=== PATIENT | female | born 1965 | race Caucasian/White ===

== ENCOUNTER 2020-04-05 16:03 | Outpatient (REF) | payer OTHER, SELFPAY ==
[2020-04-05 16:43] LABS: COMMENT (LAB VIEW ONLY) 18.07 mg/dL
[2020-04-05 17:18] LABS: ALT 26 U/L (14-59); AST 18 U/L (15-37); Albumin 4.4 g/dL (3.4-5.0); Alkaline Phosphatase 76 U/L (46-116); Anion Gap 10.5 mmol/L (3-11); BUN 15 mg/dL (7-18); Bilirubin, Total 0.7 mg/dL (0.2-1.0); CO2 27.5 mmol/L (21.0-32.0); CREATININE 0.7 mg/dL (0.55-1.02); Calcium 9.7 mg/dL (8.5-10.1); Calculated LDL 102 mg/dL (<100); Chloride 103 mmol/L (98-107); Cholesterol 190 mg/dL (<200); Ferritin 6 ng/mL (8-252); Glucose 132 mg/dL (74-106); HDL Cholesterol 51 mg/dL (40-60); Sodium 141 mmol/L (136-145); TSH (W/Ref FT4) 1.73 uIU/mL (0.36-3.74); Total Protein 7.4 g/dL (6.4-8.2); Triglyceride 185 mg/dL (<150)
[2020-04-05 17:29] LABS: Abs Immature Grans 0.11 10^3/uL (0.0-0.06); Absolute Basophil Count 0.16 10^3/uL (0.0-0.2); Absolute Eosinophil Count 0.34 10^3/uL (0.0-0.7); Absolute Lymphocyte Count 2.74 10^3/uL (1.2-3.4); Absolute Monocyte Count 0.74 10^3/uL (0.1-0.8); Basophils % 1.6; Eosinophils % 3.3; HGB 15.6 g/dL (11.2-15.7); Immature Grans % 1.1; Lymphocytes % 26.9; MCH 19.6 pg (27.0-33.0); MCHC 29.4 % (32.0-36.0); MCV 66.7 fL (80-95); MPV 9.9 fL (8.0-11.0); Monocytes % 7.3; Neutrophils % 59.8; Nucleated RBC 0 %; RBC 7.95 10^6/uL (3.93-5.22); RDW 20.8 % (11.7-14.6); WBC 10.19 10^3/uL (4.4-10.8)
[2020-04-05 17:31] LABS: Diff Comment RBC Morph Reviewed
[2020-04-05 17:32] LABS: Anisocytosis 1+; Hypochromasia 1+; Microcytosis 3+; Platelet Count 738 10^3/uL (130-400); Polychromasia Present
[2020-04-05 18:37] LABS: Iron 24 ug/dL (50-170); Total Iron Binding Capacity 442 ug/dL (250-450); Transferrin Sat 5 % (15-50)
[2020-04-08 06:26] LABS: Vitamin D 25 Total 37.6 ng/ml (30-100)
== END 2020-04-05 16:04 | disposition home or self-care (01) ==
LOC: NCHCN 16:03
PROVIDERS: Visit Provider Physician Assistant
DX: E55.9 Vitamin D deficiency, unspecified (principal); E78.5 Hyperlipidemia, unspecified; E11.65 Type 2 diabetes mellitus with hyperglycemia; I10 Essential (primary) hypertension; E61.1 Iron deficiency; D75.1 Secondary polycythemia; D47.3 Essential (hemorrhagic) thrombocythemia
CPT/HCPCS: 80053; 80061; 82306; 82043; 82570; 82728; 83540; 83550; 84443; 85025

== ENCOUNTER 2020-06-07 04:28 | Outpatient (RCR) | payer OTHER, SELFPAY ==
[2020-05-16 09:28] LABS: Abs Immature Grans 0.07 10^3/uL (0.0-0.06); Absolute Basophil Count 0.15 10^3/uL (0.0-0.2); Absolute Eosinophil Count 0.45 10^3/uL (0.0-0.7); Absolute Monocyte Count 0.61 10^3/uL (0.1-0.8); Absolute Neutrophil Count 6.48 10^3/uL (1.2-6.7); Basophils % 1.5; Eosinophils % 4.4; HGB 15.1 g/dL (11.2-15.7); Immature Grans % 0.7; Lymphocytes % 24.4; MCH 19.5 pg (27.0-33.0); MCV 67.1 fL (80-95); MPV 9.2 fL (8.0-11.0); Monocytes % 5.9; Neutrophils % 63.1; Nucleated RBC 0 %; RBC 7.75 10^6/uL (3.93-5.22); RDW 20.6 % (11.7-14.6); RDW-SD 43.7 fL; WBC 10.26 10^3/uL (4.4-10.8)
[2020-05-16 09:49] LABS: Anisocytosis 2+; Diff Comment RBC Morph Reviewed; Hypochromasia 3+; Microcytosis 3+; Ovalocytes 2+; Platelet Count 733 10^3/uL (130-400); Polychromasia Present
[2020-05-16 09:50] LABS: Poikilocytes 2+
[2020-05-24] MEDS: Normal Saline Flush 10 ML SYR IVP (07:13)
[2020-05-24 07:28] LABS: Abs Immature Grans 0.09 10^3/uL (0.0-0.06); Absolute Basophil Count 0.13 10^3/uL (0.0-0.2); Absolute Eosinophil Count 0.47 10^3/uL (0.0-0.7); Absolute Lymphocyte Count 2.78 10^3/uL (1.2-3.4); Absolute Monocyte Count 0.63 10^3/uL (0.1-0.8); Absolute Neutrophil Count 6.09 10^3/uL (1.2-6.7); Basophils % 1.3; Eosinophils % 4.6; HCT 50.5 % (36.0-46.0); HGB 14.9 g/dL (11.2-15.7); Immature Grans % 0.9; Lymphocytes % 27.3; MCH 19.9 pg (27.0-33.0); MCHC 29.5 % (32.0-36.0); MCV 67.6 fL (80-95); MPV 9.6 fL (8.0-11.0); Monocytes % 6.2; Neutrophils % 59.7; Nucleated RBC 0 %; RBC 7.47 10^6/uL (3.93-5.22); RDW 20.1 % (11.7-14.6); RDW-SD 43.2 fL; WBC 10.19 10^3/uL (4.4-10.8)
[2020-05-24 07:56] LABS: Anisocytosis 1+; Diff Comment Diff Reviewed; Microcytosis 1+
[2020-05-24 08:06] LABS: Platelet Count 751 10^3/uL (130-400)
[2020-05-31] MEDS: Normal Saline Flush 10 ML SYR IVP (07:19)
[2020-05-31 07:23] LABS: Abs Immature Grans 0.07 10^3/uL (0.0-0.06); Absolute Basophil Count 0.14 10^3/uL (0.0-0.2); Absolute Eosinophil Count 0.44 10^3/uL (0.0-0.7); Absolute Lymphocyte Count 3.03 10^3/uL (1.2-3.4); Absolute Monocyte Count 0.83 10^3/uL (0.1-0.8); Absolute Neutrophil Count 7.34 10^3/uL (1.2-6.7); Basophils % 1.2; Eosinophils % 3.7; HCT 45.1 % (36.0-46.0); HGB 13.1 g/dL (11.2-15.7); Immature Grans % 0.6; Lymphocytes % 25.6; MCH 19.6 pg (27.0-33.0); MCV 67.3 fL (80-95); MPV 9.9 fL (8.0-11.0); Neutrophils % 61.9; Nucleated RBC 0 %; RDW 19.6 % (11.7-14.6); RDW-SD 42.8 fL; WBC 11.85 10^3/uL (4.4-10.8)
[2020-05-31 08:14] LABS: Anisocytosis 1+; Diff Comment Diff Reviewed; Hypochromasia 1+; Microcytosis 2+; Platelet Count 858 10^3/uL (130-400)
[2020-05-31 08:15] LABS: Poikilocytes 1+
[2020-06-07 07:08] LABS: Abs Immature Grans 0.07 10^3/uL (0.0-0.06); Absolute Lymphocyte Count 2.28 10^3/uL (1.2-3.4); Basophils % 1.1; Eosinophils % 3.9; HCT 41.5 % (36.0-46.0); HGB 11.9 g/dL (11.2-15.7); Immature Grans % 0.6; MCH 19.3 pg (27.0-33.0); MCHC 28.7 % (32.0-36.0); MCV 67.3 fL (80-95); MPV 9.7 fL (8.0-11.0); Neutrophils % 68.4; Nucleated RBC 0 %; RBC 6.17 10^6/uL (3.93-5.22); RDW 18.9 % (11.7-14.6); RDW-SD 42.7 fL; WBC 11.41 10^3/uL (4.4-10.8)
[2020-06-07 07:24] LABS: Absolute Basophil Count 0.13 10^3/uL (0.0-0.2); Absolute Eosinophil Count 0.44 10^3/uL (0.0-0.7); Absolute Monocyte Count 0.68 10^3/uL (0.1-0.8)
[2020-06-07] MEDS: Normal Saline Flush 10 ML SYR IVP (08:08)
[2020-06-07 08:21] LABS: Anisocytosis 1+; Diff Comment Diff Reviewed; Hypochromasia 1+; Microcytosis 3+; Platelet Count 860 10^3/uL (130-400)
[2020-06-07 08:22] LABS: Poikilocytes 1+
== END 2020-06-14 23:59 | disposition home or self-care (01) ==
LOC: INF 04:28
PROVIDERS: PCP Physician Assistant; Visit Provider Internal Medicine Hematology & Oncology
DX: D45 Polycythemia vera (principal)
CPT/HCPCS: 36415; 99195; 85025

== ENCOUNTER 2020-07-11 13:57 | Outpatient (RCR) | payer OTHER, SELFPAY ==
[2020-07-11 12:24] LABS: Abs Immature Grans 0.06 10^3/uL (0.0-0.06); Absolute Basophil Count 0.14 10^3/uL (0.0-0.2); Absolute Lymphocyte Count 3.08 10^3/uL (1.2-3.4); Absolute Monocyte Count 0.75 10^3/uL (0.1-0.8); Absolute Neutrophil Count 6.95 10^3/uL (1.2-6.7); Basophils % 1.2; Eosinophils % 4.9; HCT 41.7 % (36.0-46.0); Immature Grans % 0.5; Lymphocytes % 26.7; MCH 18.6 pg (27.0-33.0); MCHC 28.8 % (32.0-36.0); MCV 64.6 fL (80-95); MPV 9.7 fL (8.0-11.0); Monocytes % 6.5; Neutrophils % 60.2; Nucleated RBC 0 %; RBC 6.46 10^6/uL (3.93-5.22); RDW 18.8 % (11.7-14.6); RDW-SD 39.2 fL; WBC 11.54 10^3/uL (4.4-10.8)
[2020-07-11 12:43] LABS: Absolute Eosinophil Count 0.57 10^3/uL (0.0-0.7)
[2020-07-11 12:50] LABS: Diff Comment Diff Reviewed; Microcytosis 3+; Platelet Count 783 10^3/uL (130-400); Polychromasia Present
[2020-07-11 12:51] LABS: Poikilocytes 1+
== END 2020-07-15 23:59 | disposition home or self-care (01) ==
LOC: INF 13:57
PROVIDERS: PCP Physician Assistant; Visit Provider Internal Medicine Hematology & Oncology
DX: D45 Polycythemia vera (principal)
CPT/HCPCS: 36415; 85025

== ENCOUNTER 2020-08-09 09:00 | Outpatient (RCR) | payer OTHER, SELFPAY ==
[2020-08-09 07:59] LABS: Absolute Basophil Count 0.16 10^3/uL (0.0-0.2); Absolute Eosinophil Count 0.44 10^3/uL (0.0-0.7); Absolute Lymphocyte Count 2.66 10^3/uL (1.2-3.4); Absolute Monocyte Count 0.74 10^3/uL (0.1-0.8); Basophils % 1.5; Eosinophils % 4.2; HCT 45.9 % (36.0-46.0); HGB 12.9 g/dL (11.2-15.7); Immature Grans % 0.9; Lymphocytes % 25.1; MCH 17.8 pg (27.0-33.0); MCHC 28.1 % (32.0-36.0); MCV 63.4 fL (80-95); MPV 10.1 fL (8.0-11.0); Neutrophils % 61.3; Nucleated RBC 0 %; RBC 7.24 10^6/uL (3.93-5.22); RDW 19.6 % (11.7-14.6); RDW-SD 38.5 fL
[2020-08-09 08:35] LABS: Microcytosis 2+
[2020-08-09 10:44] LABS: Platelet Count 887 10^3/uL (130-400)
== END 2020-08-14 23:59 | disposition home or self-care (01) ==
LOC: INF 09:00
PROVIDERS: PCP Physician Assistant; Visit Provider Internal Medicine Hematology & Oncology
DX: D45 Polycythemia vera (principal)
CPT/HCPCS: 36415; 99195; 85025

== ENCOUNTER 2020-08-27 04:14 | Outpatient (CLI) | payer OTHER, SELFPAY ==
[2020-08-27] MEDS: Albuterol HFA 18 GM 200 PUFF INH IH (09:36)
[2020-08-27] MEDS: Inhaler, Assist Device 1 EACH MC (09:36)
--- NOTE | 2020-08-27 21:28 | W.PFT ---
Date of service: 08/27/20 Time of Service: 08:31 Pulmonary Function Test Result Interpretation Spirometry: No evidence of obstructive airways disease, no bronchodilator response Lung Volumes: Mild restriction Diffusion Capacity: Mildly reduced which is normal when corrected to alveolar volume Airway Pressure: Normal Impression Mild restrictive pattern, associated with mild diffusion defect Clinical Correlation therefore is recommended.
== END 2020-08-27 04:15 | disposition home or self-care (01) ==
LOC: RT 04:14
PROVIDERS: PCP Physician Assistant; Visit Provider Physician Assistant
DX: R06.02 Shortness of breath (principal)
CPT/HCPCS: 94060; 94726; 94729

== ENCOUNTER 2020-09-06 05:48 | Outpatient (RCR) | payer OTHER, SELFPAY ==
[2020-09-06 08:52] LABS: Abs Immature Grans 0.07 10^3/uL (0.0-0.06); Absolute Basophil Count 0.12 10^3/uL (0.0-0.2); Absolute Eosinophil Count 0.33 10^3/uL (0.0-0.7); Absolute Lymphocyte Count 2.57 10^3/uL (1.2-3.4); Absolute Monocyte Count 0.61 10^3/uL (0.1-0.8); Absolute Neutrophil Count 6.91 10^3/uL (1.2-6.7); Basophils % 1.1; Eosinophils % 3.1; HCT 42.5 % (36.0-46.0); HGB 11.7 g/dL (11.2-15.7); Immature Grans % 0.7; Lymphocytes % 24.2; MCH 17.2 pg (27.0-33.0); MCHC 27.5 % (32.0-36.0); MCV 62.6 fL (80-95); MPV 9.9 fL (8.0-11.0); Monocytes % 5.7; Neutrophils % 65.2; Nucleated RBC 0 %; RBC 6.79 10^6/uL (3.93-5.22); RDW 19.8 % (11.7-14.6); RDW-SD 39.6 fL; WBC 10.61 10^3/uL (4.4-10.8)
[2020-09-06 09:00] LABS: Platelet Count 951 10^3/uL (130-400)
[2020-09-06 09:22] LABS: Anisocytosis 1+; Diff Comment Diff Reviewed; Hypochromasia 1+; Microcytosis 2+; Poikilocytes 1+
== END 2020-09-14 23:59 | disposition home or self-care (01) ==
LOC: INF 05:48
PROVIDERS: PCP Physician Assistant; Visit Provider Internal Medicine Hematology & Oncology
DX: D45 Polycythemia vera (principal)
CPT/HCPCS: 36415; 85025

== ENCOUNTER 2020-10-11 03:48 | Outpatient (RCR) | payer OTHER, SELFPAY ==
[2020-10-11 07:38] LABS: Abs Immature Grans 0.07 10^3/uL (0.0-0.06); Absolute Basophil Count 0.17 10^3/uL (0.0-0.2); Absolute Eosinophil Count 0.36 10^3/uL (0.0-0.7); Absolute Lymphocyte Count 2.74 10^3/uL (1.2-3.4); Absolute Monocyte Count 0.77 10^3/uL (0.1-0.8); Basophils % 1.5; Eosinophils % 3.2; HCT 41.3 % (36.0-46.0); HGB 11.5 g/dL (11.2-15.7); Immature Grans % 0.6; Lymphocytes % 24.6; MCH 16.8 pg (27.0-33.0); MCHC 27.8 % (32.0-36.0); MCV 60.4 fL (80-95); MPV 9.8 fL (8.0-11.0); Monocytes % 6.9; Neutrophils % 63.2; Nucleated RBC 0 %; RBC 6.84 10^6/uL (3.93-5.22); RDW 20.8 % (11.7-14.6); RDW-SD 39.2 fL; WBC 11.15 10^3/uL (4.4-10.8)
[2020-10-11 07:53] LABS: Absolute Neutrophil Count 7.05 10^3/uL (1.2-6.7)
[2020-10-11 08:21] LABS: Platelet Count 905 10^3/uL (130-400)
[2020-10-11 08:22] LABS: Anisocytosis 2+; Diff Comment Diff Reviewed; Hypochromasia 2+; Microcytosis 3+; Ovalocytes 2+; Poikilocytes 2+
== END 2020-10-15 23:59 | disposition home or self-care (01) ==
LOC: INF 03:48
PROVIDERS: PCP Physician Assistant; Visit Provider Internal Medicine Hematology & Oncology
DX: D45 Polycythemia vera (principal)
CPT/HCPCS: 36415; 85025

== ENCOUNTER 2020-11-08 05:31 | Outpatient (RCR) | payer OTHER, SELFPAY ==
[2020-11-08] MEDS: Normal Saline Flush 10 ML SYR IVP (07:31)
[2020-11-08 07:38] LABS: Abs Immature Grans 0.13 10^3/uL (0.0-0.06); Absolute Basophil Count 0.14 10^3/uL (0.0-0.2); Absolute Eosinophil Count 0.42 10^3/uL (0.0-0.7); Absolute Lymphocyte Count 2.91 10^3/uL (1.2-3.4); Absolute Monocyte Count 0.58 10^3/uL (0.1-0.8); Absolute Neutrophil Count 6.57 10^3/uL (1.2-6.7); Basophils % 1.3; Eosinophils % 3.9; HCT 40.6 % (36.0-46.0); HGB 11.1 g/dL (11.2-15.7); Immature Grans % 1.2; Lymphocytes % 27.1; MCH 16.8 pg (27.0-33.0); MCHC 27.3 % (32.0-36.0); MCV 61.6 fL (80-95); MPV 9.7 fL (8.0-11.0); Monocytes % 5.4; Neutrophils % 61.1; Nucleated RBC 0 %; RBC 6.59 10^6/uL (3.93-5.22); RDW 21.4 % (11.7-14.6); RDW-SD 41.9 fL; WBC 10.75 10^3/uL (4.4-10.8)
[2020-11-08 08:10] LABS: ALT 26 U/L (14-59); AST 20 U/L (15-37); Albumin 4.1 g/dL (3.4-5.0); Alkaline Phosphatase 81 U/L (46-116); Anion Gap 8.3 mmol/L (3-11); BUN 16 mg/dL (7-18); Bilirubin, Total 0.6 mg/dL (0.2-1.0); CO2 29.7 mmol/L (21.0-32.0); CREATININE 0.8 mg/dL (0.55-1.02); Calcium 8.8 mg/dL (8.5-10.1); Chloride 101 mmol/L (98-107); Ferritin 4 ng/mL (8-252); Glucose 185 mg/dL (74-106); Potassium 4.3 mmol/L (3.5-5.1); Sodium 139 mmol/L (136-145); Total Protein 7.3 g/dL (6.4-8.2)
[2020-11-08 08:17] LABS: Anisocytosis 2+; Basophilic Stippling Present; Diff Comment Diff Reviewed; Hypochromasia 2+; Microcytosis 2+; Poikilocytes 2+; Polychromasia Present
[2020-11-08 08:20] LABS: Platelet Count 835 10^3/uL (130-400)
== END 2020-11-14 23:59 | disposition home or self-care (01) ==
LOC: INF 05:31
PROVIDERS: PCP Physician Assistant; Visit Provider Internal Medicine Hematology & Oncology
DX: D45 Polycythemia vera (principal)
CPT/HCPCS: 36415; 80053; 99195; 82728; 85025

== ENCOUNTER 2021-02-19 15:28 | Outpatient (REF) | payer OTHER, SELFPAY ==
[2021-02-21 16:30] LABS: COVID-19 RT-PCR UVMMC Result Negative (Negative)
== END 2021-02-19 15:29 | disposition home or self-care (01) ==
LOC: NCHCN 15:28
PROVIDERS: PCP Physician Assistant; Visit Provider Nurse Practitioner Family
DX: Z20.822 Contact with and (suspected) exposure to COVID-19 (principal); R10.9 Unspecified abdominal pain; R50.9 Fever, unspecified
CPT/HCPCS: U0003

== ENCOUNTER → 2022-03-10 10:09 | Outpatient (BNVA) | payer OTHER, SELFPAY | PROVIDERS: PCP Physician Assistant; Referring Provider Internal Medicine; Visit Provider Surgery | DX: K82.8 Other specified diseases of gallbladder (principal); R94.8 Abnormal results of function studies of other organs and systems; R10.9 Unspecified abdominal pain; D45 Polycythemia vera; D64.9 Anemia, unspecified; D75.839 Thrombocytosis, unspecified; E11.69 Type 2 diabetes mellitus with other specified complication; I10 Essential (primary) hypertension | CPT/HCPCS: 99205; 99213 ==

== ENCOUNTER 2023-03-03 09:46 | Outpatient (REF) | payer OTHER, SELFPAY ==
--- OUTSIDE RECORDS SUMMARY | 2023-03-03 09:51 | XMS_ITS | Continuity of Care Document ---
Author Name Unknown Organization [facility] Address [address] [place] [address] Care Team Providers Care Storeroom Attendant Name Role Phone Mark Abbasi Primary Care Physician Encounter [facility] Date(s): 01/22/22 - 01/22/22 [facility] [address] [place] [address] Discharge Disposition: Home or Self Care Attending Physician: Xin Sanchez MD Admitting Physician: Xin Sanchez MD Referring Physician: Xin Sanchez MD Social History Social History Type Response Sex Female Patient Care team information Personnel Name: Mark Abbasi MD Address: Address: [address] [address]- [place]
--- OUTSIDE RECORDS SUMMARY | 2023-03-03 09:51 | XMS_ITS | Continuity of Care Document ---
Author Name Unknown Organization [facility] Address [address] [place] [address] Care Team Providers Care Product Lister Name Role Phone Mark Abbasi Primary Care Physician Encounter [facility] Date(s): 01/05/22 - 01/05/[address] [address] Discharge Disposition: Home or Self Care Attending Physician: Xin Sanchez MD Admitting Physician: Xin Sanchez MD Referring Physician: Xin Sanchez MD Assessment and Plan Future Appointments Results Laboratory List Name Date Occult Blood Screen, Feces 01/05/22 Most recent to oldest [Reference Range]: 1 Occult Bld Stl I N/A (01/05/22 10:45 AM) Occult Bld Stl ll Negative (01/05/22 10:45 AM) Occult Bld Stl lll N/A (01/05/22 10:45 AM) Social History Social History Type Response Sex Female Patient Care team information Personnel Name: Mark Abbasi MD Address: Address: [facility] [address] [place], [place] [address]
--- OUTSIDE RECORDS SUMMARY | 2023-03-03 09:51 | XMS_ITS | Continuity of Care Document ---
Author Name Unknown Organization [facility] Address [address] [place] [address] Care Team Providers Care Loom Inspector Name Role Phone Mark Abbasi Primary Care Physician Encounter [facility] Date(s): 03/30/22 - 03/30/[address] [address] Discharge Disposition: Home or Self Care Attending Physician: Tonya Sutton DO Admitting Physician: Tonya Sutton DO Assessment and Plan Future Appointments Social History Social History Type Response Sex Female Patient Care team information Care Team Personnel Name: Mark Abbasi MD Position: No Access Member Role: Primary Care Physician Address: Address: [address] [address]- Care Team Related Persons Name: JOHN DIAZ Address: Home [address] [place] [address] Address: Mailing [address] [place], [place] [id number]
--- OUTSIDE RECORDS SUMMARY | 2023-03-03 09:51 | XMS_ITS | Continuity of Care Document ---
Author Name Unknown Organization [facility] Address [address] [place] [address] Care Team Providers Care Patcher Bowling Ball Name Role Phone Mark Abbasi Primary Care Physician Encounter [facility] Date(s): 01/22/22 - 01/22/22 [facility] [address] [place] [address] Discharge Disposition: Home or Self Care Attending Physician: Annia Morrow MD Admitting Physician: Annia Morrow MD Referring Physician: Annia Morrow MD Social History Social History Type Response Sex Female Patient Care team information Personnel Name: Mark Abbasi MD Address: Address: [facility] [address] [place], [place] [address]
[2023-03-03 20:22] LABS: ALT 20 U/L (14-59); AST 22 U/L (15-37); Albumin 4.1 g/dL (3.4-5.0); Alkaline Phosphatase 64 U/L (46-116); Anion Gap 8.8 mmol/L (3-11); BUN 11 mg/dL (7-18); Bilirubin, Total 0.4 mg/dL (0.2-1.0); CO2 28.2 mmol/L (21.0-32.0); CREATININE 0.9 mg/dL (0.55-1.02); Calcium 9.3 mg/dL (8.5-10.1); Chloride 103 mmol/L (98-107); Estimated GFR 73.64 (mL/min/1.73m2); Glucose 129 mg/dL (74-106); Potassium 4.4 mmol/L (3.5-5.1); Sodium 140 mmol/L (136-145); Total Protein 7.2 g/dL (6.4-8.2)
[2023-03-03 20:32] LABS: COMMENT (LAB VIEW ONLY) 70.44 mg/dL; Microalb ug/mg Crea 6.5 ug/mg Cr
[2023-03-03 20:34] LABS: Hemoglobin A1C 6.4 % (<5.7)
== END 2023-03-03 09:47 | disposition home or self-care (01) ==
LOC: NCHCN 09:46
PROVIDERS: PCP Physician Assistant; Visit Provider Physician Assistant
DX: E11.65 Type 2 diabetes mellitus with hyperglycemia (principal)
CPT/HCPCS: 80053; 82043; 82570; 83036

== ENCOUNTER 2023-06-14 18:19 | Outpatient (REF) | payer OTHER, SELFPAY ==
[2023-06-14 19:11] LABS: Abs Immature Grans 0.03 10^3/uL (0.0-0.06); Absolute Basophil Count 0.03 10^3/uL (0.0-0.2); Absolute Eosinophil Count 0.05 10^3/uL (0.0-0.7); Absolute Lymphocyte Count 3.29 10^3/uL (1.2-3.4); Absolute Monocyte Count 0.33 10^3/uL (0.1-0.8); Absolute Neutrophil Count 1.92 10^3/uL (1.2-6.7); Basophils % 0.5; Eosinophils % 0.9; HCT 30.8 % (36.0-46.0); HGB 10.3 g/dL (11.2-15.7); Immature Grans % 0.5; Lymphocytes % 58.2; MCH 27.2 pg (27.0-33.0); MCHC 33.4 % (32.0-36.0); MCV 82 fL (80-95); MPV 9.9 fL (8.0-11.0); Monocytes % 5.8; Neutrophils % 34.1; Platelet Count 371 10^3/uL (130-400); RBC 3.78 10^6/uL (3.93-5.22); RDW 16.5 % (11.7-14.6); RDW-SD 48.8 fL; WBC 5.65 10^3/uL (4.4-10.8)
== END 2023-06-14 18:20 | disposition home or self-care (01) ==
LOC: NCHCN 18:19
PROVIDERS: PCP Physician Assistant; Visit Provider Nurse Practitioner Family
DX: R06.09 Other forms of dyspnea (principal)
CPT/HCPCS: 85025

== ENCOUNTER → 2023-12-30 09:46 | Outpatient (BNVA) | payer OTHER, SELFPAY | PROVIDERS: PCP Physician Assistant; Referring Provider Physician Assistant; Visit Provider Physical Therapy Assistant | DX: Z12.11 Encounter for screening for malignant neoplasm of colon (principal); E11.9 Type 2 diabetes mellitus without complications; I10 Essential (primary) hypertension ==

== ENCOUNTER 2024-03-17 05:50 | Day surgery (SDC) | payer OTHER, SELFPAY ==
[2024-03-17 06:03] VITALS: BP 123/75; PULSE 89; RESP 16; TEMP 36.9; O2SAT 100
[2024-03-17] MEDS: Lactated Ringers 1,000 ML 80 ML IV (06:40)
--- NOTE | 2024-03-17 07:32 | HPE_ITS ---
Date of service: 03/17/24 Time of Service: 07:33 Assessment and Plan Assessment and plan (1) History of colon polyps: Status: Acute Assessment and plan: I have explained the procedure of colonoscopy. I have outlined the risks of the procedure including those of bowel perforation, bleeding after a polypectomy, oversedation, and inability to complete the exam. The patient agrees to proceed and signed the consent form. the patient has previously been provided with educational material describing colonoscopy. History of Present Illness Narrative: Pt presents for screening colonoscopy. Patient had a previous colonoscopy in [place], 13 yrs ago. She believes polyps were removed but had no complications and was not told to follow-up earlier than 10 years. Since that colonoscopy she was found to have the JAK2 gene mutation based on abnormal blood work. She has not had any symptoms, no abnormal clotting. On her combination of baby aspirin and specific protein inhibitor she has easy bleeding and bruising. She stopped the medications 5 days ago. 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 No cirrhosis or splenomegaly noted at that time per patient. Done in [place]. 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 (Acute) Biliary dyskinesia (Acute) Thrombocytosis (Acute) Thyroid nodule (Acute) Abnormal biliary HIDA scan (Acute) Abdominal pain (Acute) Polycythemia vera (Acute) Anemia (Chronic) Medical History Fatigue Dyspnea on exertion GERD (gastroesophageal reflux disease) Essential hypertension Non-toxic uninodular goiter Hemangioma of intra-abdominal structure Vitamin D deficiency Surgical History History of bariatric surgery 01/16/21 laparoscopic band Hx laparoscopic cholecystectomy (~06/2022) uvm Social History Smoking/Tobacco Use Status: Never Smoking risk assessment performed?: Yes Alcohol Intake: current Alcohol Intake frequency: a few times a month Drug use: Never Substance use type: does not use Housing: house Do you feel safe at home: Yes Do you feel safe in your relationship?: Yes Meds Allergies and Home Medications Allergies Allergy/AdvReac Type Severity Reaction Status Date / Time No Known Allergies Allergy Verified 03/15/24 13:56 Home Medications ?Medication ?Instructions ?Recorded ?Confirmed ?Type aspirin 81 mg tablet,delayed 81 mg PO DAILY 03/10/22 03/15/24 History release (Adult Aspirin Regimen) cholecalciferol (vitamin D3) 10 10 mcg PO DAILY 03/10/22 03/15/24 History mcg (400 unit) capsule cyanocobalamin (vitamin B-12) 1,000 mcg PO DAILY 03/10/22 03/15/24 History 1,000 mcg capsule empagliflozin 5 mg-metformin 500 1 tab PO BID 03/10/22 03/15/24 History mg tablet (Synjardy) folic acid 1 mg tablet 1 mg PO DAILY 03/10/22 03/15/24 History dulaglutide 1.5 mg/0.5 mL 4.5 mg subcut QWEEK 12/13/23 03/15/24 History subcutaneous pen injector (Trulicity) ruxolitinib 5 mg tablet (Jakafi) 20 mg PO DAILY 12/13/23 03/15/24 History valsartan 40 mg tablet 80 mg PO DAILY 12/13/23 03/15/24 History bisacodyl 5 mg tablet,delayed 5 mg PO ONCE #4 tabs 12/30/23 03/15/24 Rx release (Dulcolax (bisacodyl)) ferrous sulfate 28 mg iron tablet 28 mg PO DAILY 12/30/23 03/15/24 History omeprazole 40 mg capsule,delayed 40 mg PO DAILY 12/30/23 03/15/24 History release polyethylene glycol 3350 17 17 g PO ONCE #238 grams 12/30/23 03/15/24 Rx gram/dose oral powder Exam Narrative Exam Narrative: Patient is alert and oriented, comfortable sitting up, has notable poor dentition and missing dentition. Resp Effort & Inspection: normal respiratory effort Auscultation: clear to auscultation bilaterally Cardio Rate: regular rate Rhythm: regular rhythm Neuro General: patient alert and patient oriented x3 Results Last Vital Signs Temp 36.9 C 03/17/24 06:03 Pulse 89 03/17/24 06:03 Resp 16 03/17/24 06:03 BP 123/75 03/17/24 06:03 Pulse Ox 100 03/17/24 06:03 Time Spent Time spent with Patient: <40 minutes Time was spent: preparing to see the patient(eg.review tests)
--- NOTE | 2024-03-17 07:46 | W.ANESPRE ---
General Info Date of Service Date Performed: 03/17/24 Height: 5 ft 7 in Weight: 86 kg Body Mass Index (BMI): 29.7 Surgical Procedure: Operation Date: 03/17/24 07:35 Proposed Procedure Side Surgeon priscilla Huff MD Meds Allergies and Home Medications Allergies Allergy/AdvReac Type Severity Reaction Status Date / Time No Known Allergies Allergy Verified 03/15/24 13:56 Home Medication ?Medication ?Instructions ?Recorded aspirin 81 mg tablet,delayed 81 mg PO DAILY 03/10/22 release (Adult Aspirin Regimen) cholecalciferol (vitamin D3) 10 10 mcg PO DAILY 03/10/22 mcg (400 unit) capsule cyanocobalamin (vitamin B-12) 1,000 mcg PO DAILY 03/10/22 1,000 mcg capsule empagliflozin 5 mg-metformin 500 1 tab PO BID 03/10/22 mg tablet (Synjardy) folic acid 1 mg tablet 1 mg PO DAILY 03/10/22 dulaglutide 1.5 mg/0.5 mL 4.5 mg subcut QWEEK 12/13/23 subcutaneous pen injector (Trulicity) ruxolitinib 5 mg tablet (Jakafi) 20 mg PO DAILY 12/13/23 valsartan 40 mg tablet 80 mg PO DAILY 12/13/23 bisacodyl 5 mg tablet,delayed 5 mg PO ONCE #4 tabs 12/30/23 release (Dulcolax (bisacodyl)) ferrous sulfate 28 mg iron tablet 28 mg PO DAILY 12/30/23 omeprazole 40 mg capsule,delayed 40 mg PO DAILY 12/30/23 release polyethylene glycol 3350 17 17 g PO ONCE #238 grams 12/30/23 gram/dose oral powder Current Visit Medications: Current Medications Generic Name Dose Route Start Last Admin Trade Name Freq PRN Reason Stop Dose Admin Ringer's Solution 1,000 mls @ 80 mls/hr 03/17/24 06:00 03/17/24 06:40 IV 03/17/24 23:59 80 mls/hr INFUSION JOHN Administration IV Miscellaneous Supplies 1 each 03/17/24 06:00 Iv Access IV 03/17/24 23:59 DIRECTED JOHN Sodium Chloride 0 ml 03/17/24 06:00 Normal Saline Flush 10 Ml Syr IV 03/17/24 23:59 PRN PRN Sodium Chloride 0 ml 03/17/24 06:00 Normal Saline 10 Ml Vial IJ 03/17/24 23:59 DIRECTED PRN Sterile Water 0 ml 03/17/24 06:00 Water,Injection,Sterile 10 Ml Vial IJ 03/17/24 23:59 DIRECTED PRN PFSH Active Problems Active Problems: Problem Status Onset Code History of colon polyps Acute Z86.0100 JAK2 V617F mutation Acute Z15.89 Immunocompromised state due to drug therapy Acute D84.821, Z79.899 ALEXANDRA-2 gene mutation Acute Z15.89 History of obesity Acute Z86.39 Hx of laparoscopic gastric banding Acute Z98.84 Hyperlipidemia associated with type 2 diabetes mellitus Acute E11.69, E78.5 HTN (hypertension) Chronic I10 Poorly controlled type 2 diabetes mellitus Acute E11.65 Fatty liver disease, nonalcoholic Acute K76.0 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 Acute R16.1 Biliary dyskinesia Acute K82.8 Thrombocytosis Acute D75.839 Thyroid nodule Acute E04.1 Abnormal biliary HIDA scan Acute R94.8 Abdominal pain Acute R10.9 Polycythemia vera Acute D45 Anemia Chronic D64.9 Medical History Medical History (Updated 03/17/24 @ 07:41 by Florecita Huff MD) Fatigue Dyspnea on exertion GERD (gastroesophageal reflux disease) Essential hypertension Non-toxic uninodular goiter Hemangioma of intra-abdominal structure Vitamin D deficiency Surgical History Surgical History History of bariatric surgery 01/16/21 laparoscopic band Hx laparoscopic cholecystectomy (~06/2022) uvm Tobacco Smoking/Tobacco Use Status: Never Alcohol Alcohol Intake: current Alcohol intake frequency: a few times a month Substance Use Substance use: Never Substance use type: does not use Vital Signs and Lab Results Vital Signs Most Recent Vital Signs in EMR: Most Recent Vital Signs Temp Pulse Resp BP Pulse Ox 36.9 C 89 16 123/75 100 03/17/24 06:03 03/17/24 06:03 03/17/24 06:03 03/17/24 06:03 03/17/24 06:03 Point of Care Results Point of Care Results: Finger Stick Blood Glucose 198 03/17/24 06:11 Lab Results Blood Type / Crossmatch: No Data to Display Complete Blood Count: No Data to Display Complete Metabolic Panel: No Data to Display Liver Function Panel: No Data to Display Coagulation Panel: No Data to Display Cardiac Panel: No Data to Display Arterial Blood Gas: No Data to Display Venous Blood Gas: No Data to Display Pancreas Panel: No Data to Display Thyroid Panel: No Data to Display Infectious Disease: No Data to Display Blood Cultures: No Data to Display Toxicology Panel: No Data to Display Anesthesia Assessment and Plan Anesthesia History Personal History: No History of Anesthesia Complications Family History: No Family History of Anesthesia Complications Exercise Tolerance Exercise Tolerance: Metabolic Equivalents>4 Pertinent Negatives Pertinent Negatives: No Symptoms of GERD (On meds) Cardiac & Pulmonary Exam Cardiac Exam: Normal S1/S2 Heart Sounds Pulmonary Exam: Clear Bilateral Breath Sounds Implantable Cardiac Device Does patient have a Pacemaker or an ICD?: No Airway Exam Known Difficult Airway: No Mallampati Class: 2 Mouth Opening: Normal (> 3cm) Thyromental Distance: Greater than 3 cm Neck Range of Motion: Full ROM Neck Circumference: Normal Teeth Condition: Generalized Poor Dentition ASA Classification ASA Score: ASA 3 Emergency Case?: No NPO Status NPO Status: NPO Clears >2 hours, Solids >8 hours Anesthesia Plan Resuscitation Status: Full Code Anesthesia Technique: General Anesthesia Airway Planned: Natural Airway Monitors Used: Standard Monitors Preoperative Comments:: Pt has a JAK2 mutation and is on Jakafi. Has not taken Jakafi since Mar 12. Driss Kaur CRNA
[2024-03-17 07:49] VITALS: BMI 29.7
--- NOTE | 2024-03-17 07:54 | W.PM.DSUDISC ---
Date of service: 03/17/24 Discharge Plan Disposition Patient Disposition: Home Condition: Stable Discharge Details Attending Provider: Florecita Huff Primary Care Provider: Brinda Diaz Home Meds and New Rx's Prescriptions: Continued omeprazole 40 mg capsule,delayed release(DR/EC) 40 mg PO DAILY ferrous sulfate 28 mg iron tablet 28 mg PO DAILY cyanocobalamin (vitamin B-12) 1,000 mcg capsule 1,000 mcg PO DAILY folic acid 1 mg tablet 1 mg PO DAILY aspirin [Adult Aspirin Regimen] 81 mg tablet,delayed release (DR/EC) 81 mg PO DAILY Synjardy 5-500 mg tablet 1 tab PO BID Patient Comments: Per pt. states she has not been taking this for months 03/15/24-JW cholecalciferol (vitamin D3) 10 mcg (400 unit) capsule 10 mcg PO DAILY valsartan 40 mg tablet 80 mg PO DAILY Trulicity 1.5 mg/0.5 mL pen injector 4.5 mg subcut QWEEK Jakafi 5 mg tablet 20 mg PO DAILY Discontinued bisacodyl [Dulcolax (bisacodyl)] 5 mg tablet,delayed release (DR/EC) 5 mg PO ONCE Qty: 4 0RF Rx Instructions: Take per colonoscopy instructions provided by ordering providers office polyethylene glycol 3350 17 gram/dose powder 17 g PO ONCE Qty: 238 0RF Rx Instructions: Take per colonoscopy instructions provided by ordering providers office Discharge Instructions Additional Instructions: You may resume aspirin in 24 hours. You need to contact your PCP regarding when to restart Jakafi. 1 small polyp was removed from your sigmoid colon and you will receive a letter with the pathology report and a recommendation for future colonoscopy Stand Alone Forms: Colonoscopy Post Instructions, Donna De Leon (DSU) Discharge Orders Discharge Orders: Discharge Order (Routine); Ordered 03/17/24 Ordered By: Florecita Huff DS: Diagnosis Discharge Diagnosis (1) History of colon polyps: Status: Acute
--- NOTE | 2024-03-17 07:59 | COLE_ITS ---
Date of service: 03/17/24 Time of Service: 08:46 Colonoscopy Report Date of procedure: 03/17/24 Pre-op diagnosis general: screening, history of colon polyps Post-op diagnosis procedure note: other (Single sigmoid polyp) Surgeon: Florecita Huff Anesthesia Type: MAC Pathology: other (Sigmoid polyp) Complications: None Disposition: PACU Procedure Description: after the induction of monitored anesthetic care, and with the patient in left lateral decubitus position, I began by performing an external anorectal exam.? Perineum and skin were normal, as was the anal verge.? There was no evidence of external hemorrhoids.? Next, I performed a digital rectal exam.? I did not appreciate any abnormal findings.? Next, I advanced a colonoscope into the rectal vault.? I performed retroflexion.? I did not see signs of pathologic internal hemorrhoids.? Using insufflation, I then advanced the colonoscope beyond the rectal folds and into the sigmoid colon before advancing towards the cecum.? The quality of the prep was excellent.? The scope was noted to be in the cecum by identification of the ileocecal valve and appendiceal orifice.? I then began withdrawing the colonoscope using repeated irrigation as necessary for full evaluation of the colonic mucosa. ?I think a single 4 mm polyp in the dista l sigmoid colon was removed with 2 applications of a plain biopsy forceps and sent for pathology. Once the scope was withdrawn to the level of the rectum, great care was taken to examine portions of the rectal folds.? Finally, the scope was withdrawn and the patient was brought to the same-day surgery recovery unit as the anesthetic wore off. ?The findings and instructions were shared with the patient prior to discharge.
[2024-03-17 08:48] VITALS: BP 123/65; PULSE 88; RESP 18; TEMP 36.2; O2SAT 97
--- NOTE | 2024-03-17 09:00 | W.ANESPOSTOP ---
Postoperative Evaluation Date, Time and Location Date Performed: 03/17/24 Time Performed: 09:00 Patient Location: Day Surgery Unit Vital Signs Most Recent Imported Vital Signs: Most Recent Vital Signs Temp Pulse Resp BP Pulse Ox 36.9 C 89 16 123/75 100 03/17/24 06:03 03/17/24 06:03 03/17/24 06:03 03/17/24 06:03 03/17/24 06:03 Pain Score Most Recent Pain Score: Most Recent Pain Score Pain Level 0 03/17/24 06:03 Assessment Mental Status: Awake (Alert & Oriented to Patient Baseline) Airway and Respiratory Function: Patent airway with normal (patient baseline) respiratory exam Cardiovascular Function: Hemodynamically Stable Hydration Status: Adequately Hydrated Nausea & Vomiting: No Nausea or Vomiting Pain: Pt. Denies Any Pain Peripheral Nerve Block: Patient did not receive a nerve block Postoperative Comments:: Pt received Propofol and did well during procedure. Instructed to follow-up with PCP for updated lab work. Driss Franz CRNA
[2024-03-17 09:10] VITALS: BP 129/68; PULSE 84; RESP 18; TEMP 36.2; O2SAT 96
== END 2024-03-17 09:30 | disposition home or self-care (01) ==
PROVIDERS: PCP Physician Assistant; Visit Provider Surgery
PROC: 0DJD8ZZ Inspection of Lower Intestinal Tract, Via Natural or Artificial Opening Endoscopic (ICD-10-PCS; CPT 45378; principal; 2024-03-17 07:30)
DX: D12.5 Benign neoplasm of sigmoid colon (principal); Z12.11 Encounter for screening for malignant neoplasm of colon; E11.9 Type 2 diabetes mellitus without complications; I10 Essential (primary) hypertension
CPT/HCPCS: 45380; 88305; J2003; J2704

== ENCOUNTER 2024-10-31 15:46 | Outpatient (REF) | payer OTHER, SELFPAY ==
[2024-10-31 19:59] LABS: Abs Immature Grans 0.04 10^3/uL (0.0-0.06); HCT 41.1 % (36.0-46.0); HGB 13.7 g/dL (11.2-15.7); Immature Grans % 0.6 %; MCH 28.2 pg (27.0-33.0); MCHC 33.3 % (32.0-36.0); MCV 85 fL (80-95); MPV 10.1 fL (8.0-11.0); Platelet Count 546 10^3/uL (130-400); RBC 4.85 10^6/uL (3.93-5.22); RDW 14.3 % (11.7-14.6); RDW-SD 44.3 fL; WBC 6.42 10^3/uL (4.4-10.8)
[2024-10-31 20:30] LABS: Iron 113 ug/dL (50-170); Total Iron Binding Capacity 351 ug/dL (250-450); Transferrin Sat 32 % (15-50)
[2024-10-31 20:32] LABS: ALT 71 U/L (14-59); AST 47 U/L (15-37); Albumin 4.4 g/dL (3.4-5.0); Alkaline Phosphatase 93 U/L (46-116); Anion Gap 8.7 mmol/L (3-11); BUN 11 mg/dL (7-18); Bilirubin, Total 0.6 mg/dL (0.2-1.0); CO2 30.3 mmol/L (21.0-32.0); Calcium 10.0 mg/dL (8.5-10.1); Chloride 103 mmol/L (98-107); Estimated GFR 84.30 (mL/min/1.73m2); Ferritin 45 ng/mL (8-252); Glucose 146 mg/dL (74-106); Potassium 4.5 mmol/L (3.5-5.1); Sodium 142 mmol/L (136-145); Total Protein 7.7 g/dL (6.4-8.2)
== END 2024-10-31 15:47 | disposition home or self-care (01) ==
LOC: NCHCN 15:46
PROVIDERS: PCP Physician Assistant; Visit Provider Physician Assistant
DX: D45 Polycythemia vera (principal)
CPT/HCPCS: 80053; 82728; 83540; 83550; 85025

== ENCOUNTER 2025-01-17 11:44 | Outpatient (CLI) | payer OTHER, SELFPAY ==
[2025-01-17 11:57] LABS: Abs Immature Grans 0.03 10^3/uL (0.0-0.06); HCT 42.1 % (36.0-46.0); HGB 13.8 g/dL (11.2-15.7); Immature Grans % 0.4 %; MCH 27.9 pg (27.0-33.0); MCHC 32.8 % (32.0-36.0); MCV 85 fL (80-95); MPV 9.7 fL (8.0-11.0); Platelet Count 578 10^3/uL (130-400); RBC 4.94 10^6/uL (3.93-5.22); RDW 14.7 % (11.7-14.6); RDW-SD 45.6 fL; WBC 7.87 10^3/uL (4.4-10.8)
== END 2025-01-17 11:45 | disposition home or self-care (01) ==
LOC: LBO 11:46
PROVIDERS: PCP Physician Assistant; Visit Provider Internal Medicine Hematology & Oncology
DX: D45 Polycythemia vera (principal)
CPT/HCPCS: 36415; 85025